=== PATIENT | male | born 1940 | race Caucasian/White ===

== ENCOUNTER 2017-12-30 09:30 | Emergency (ER) | payer OTHER ==
[~2017-12-30] VITALS: Ht 170.2 cm; Wt 61.2 kg
--- NOTE | ~2017-12-30 | EKG ---
[address] [place] [address] ELECTROCARDIOGRAM REPORT Name: BOSTON CHACON Nirmala [id number] Admission: 12/30/17 Attend Phys: Discharge: 12/30/17 Date of : 44 Report #: [id number] THIS REPORT FOR: //name// [facility] ED Test Date: 2017-12-30 Test Time: 10:05:39 Pat Name: BOSTON CHACON Department: Room: Gender: M Title Search Manager: Jin KOEHLER : 1940 Requested By: Salma English Order Number: [id number] MD: Krishna Teixeira Measurements Intervals [place] Rate: 89 P: 86 [place]: 168 QRS: 27 QRSD: 85 T: 67 QT: 363 QTc: 442 Interpretive Statements Sinus rhythm Right atrial enlargement Compared to ECG 12/05/2016 23:04:46 No significant change was found Electronically Signed On 12-30-2017 13:11:38 [employer] 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
[~2017-12-30 09:30] MED LIST: ACCUNEB SO1.25 MG/1 INH; ACETAMINOPHEN325 M1 PO; ASPIR 8181 MG PO; AZITHROMYCIN 2250 MG PO; BP MED; CEFDINIR300 MG PO; REMERON15 MG PO; SYMBICORT160 MCG/4. INH
[2017-12-30 10:15] LABS: ABSOLUTE NEUTROPHILS 3.7 thou/uL (1.4-8.2); BASOPHILS 1.2 % (0.0-2.0); EOSINOPHILS 4.5 % (0.0-3.0); HEMATOCRIT 42.2 % (42.0-52.0); HEMOGLOBIN 14.6 gm/dL (14.0-18.0); LYMPHOCYTES 14.7 % (24.0-44.0); MCH 31.5 pg (26.0-34.0); MCHC 34.6 g/dL (28.0-37.0); MONOCYTES 8.1 % (1.0-8.0); PLATELET COUNT 355 thou/uL (150-400); POLYS 71.5 % (36.0-66.0); RBC 4.63 mil/uL (4.50-6.00); RDW 13.5 % (10.5-14.5); WBC 5.2 thou/uL (4.0-11.0)
[2017-12-30 10:27] LABS: BE(vivo) 4.6 mmol/L (-2 to +3); HCO3 28.7 mmol/L (22.0-26.0); PCO2 40.6 mmHg (35.0-45.0); PO2 122.8 mmHg (80.0-100.0); pH 7.467 (7.360-7.450); sO2 98.6 % (92.0-98.0)
[2017-12-30 10:49] LABS: CALCIUM 9.3 mg/dL (8.5-10.1); CREATININE 0.7 mg/dL (0.7-1.3)
[2017-12-30 10:50] LABS: POTASSIUM 4.7 mmol/L (3.5-5.1)
[2017-12-30] MEDS ORDERED: ZPAK PO (11:33)
[2017-12-30] MEDS ORDERED: PREDNISONE 20 M20 MG PO (11:33)
[2017-12-30 11:57] VITALS: BP 136/71
== END 2017-12-30 11:58 | disposition home or self-care (01) ==
LOC: ER 09:30
PROVIDERS: Emergency Medicine
DX: J44.1 Chronic obstructive pulmonary disease with (acute) exacerbation (principal); Z87.891 Personal history of nicotine dependence